=== PATIENT | male | born 1965 | race Caucasian/White ===

== ENCOUNTER → 2022-07-07 08:48 | Outpatient (BNVA) | payer BC, SELFPAY | PROVIDERS: PCP Internal Medicine; Visit Provider Nurse Practitioner Family ==

== ENCOUNTER 2022-08-23 11:40 | Outpatient (REF) | payer BC, SELFPAY ==
[2022-08-23 14:42] LABS: PSA,Total (Free>4and<10) 11.78 ng/mL (0.00-4.00)
== END 2022-08-23 11:41 | disposition home or self-care (01) ==
LOC: HO.10HDL 11:40
PROVIDERS: Visit Provider Nurse Practitioner Family
DX: Z12.5 Encounter for screening for malignant neoplasm of prostate (principal); R97.20 Elevated prostate specific antigen [PSA]
CPT/HCPCS: 36415; 84153

== ENCOUNTER → 2022-10-06 11:26 | Outpatient (BNVA) | payer BC, SELFPAY | PROVIDERS: PCP Internal Medicine; Visit Provider Urology ==

== ENCOUNTER 2022-11-01 13:33 | Outpatient (AMB) | payer BC, SELFPAY ==
--- NOTE | 2022-11-01 13:33 | A.OFFVIS_ITS ---
Intake Intake Visit Reasons: biopsy consult H&P(no show to his biopsy) Intake Note: Patient is present for Telephone Urology Med:levofloxacin Antibiotic Allergy: none Blood Thinner: none [facility]: [facility] Required: No Allergies No Known Allergies Allergy (Verified 11/01/22 13:36) Medication List - Last Reconciled 11/01/22 by Raj Calles MD levofloxacin 500 mg PO daily 3 days HPI HPI Comments History of Present Illness Details Garrick is a pleasant male. He is a patient of Dr. Jackson. He presents for the following urologic conditions - elevated PSA Telemedicine Evaluation 15 min Consultation [facility] Video attempted Discussion regarding risks and benefits of prostate biopsy He would like to defer biopsy Based on the PCP T calculator he has a 40% chance of prostate cancer with a 20% chance of high risk prostate cancer He was informed of these risks He was also informed that he would be ully responsible for any delay in diagnosis and/or delay of therapeutic options He wishes to proceed with repeat PSA in 3 months Elevated PSA PSA 06/04 10.7, 09/03 11.8 Had been seen evaluated by nurse practitioner ARCHIE on right side Biopsy recommended Discussed urgency and frequency. Likely caused by dietary irritants. Previously drank multiple red bulls. He no showed the original biopsy appointment [facility] Medical History HTN (hypertension) Review of Systems Const All systems reviewed & are unremarkable except as noted in HPI and below Reports no additional complaints Resp Reports no additional complaints GI Reports no additional complaints Reports as per HPI Musc Reports no additional complaints Physical Exam Telemedicine evaluation Appropriate responses Regular breathing rate and rhythm HEENT Head: Yes normal to inspection Ears: hearing grossly normal bilaterally Eyes General: appearance normal, both eyes and all related structures Neck Neck: Yes normal visual inspection Chest Chest palpation & inspection: normal inspection of the chest Resp Effort & Inspection: normal respiratory effort and able to speak in complete sentences Assessment & Plan Assessment & Plan (1) Elevated PSA: Code(s): R97.20 - Elevated prostate specific antigen [PSA] (2) Abnormal digital rectal exam: Code(s): R68.89 - Other general symptoms and signs Plan Prostate biopsy recommended Patient request PSA in 3 months Orders: Orders PSA,Total (Free>4and<10) 3 Months R97.20 - Elevated prostate specific antigen [PSA] Patient Instructions: Imaging studies, laboratory and physical exam results were discussed and reviewed in detail. No major barriers to patient understanding were identified. An opportunity to ask questions regarding the treatment plan was provided. All questions were answered. The patient expressed understanding and agreement with the above treatment plan. The patient is aware they should contact our office by phone for worsening of their current condition or the appearance of new urologic symptoms. Compliance is encouraged with any medications and followup testing that is ordered. It is a privilege to participate in the urologic care of your patient. If you have any questions or concerns regarding treatment for the above conditions, or other urologic issues, please do not hesitate to contact me. The office telephone contact is [phone]. This note is constructed using voice recognition software. 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 Yours sincerely, Dr Raj Calles MD, [facility] - Urology Providers of Expert, Compassionate Care for the Genitourinary System Telehealth Telehealth Location of provider rendering services: practice address Location of patient: address on file Patient Identification confirmed using: Name, : Yes Telehealth method: voice only Patient verbally consented to treatment: Yes Patient verbally consented to billing insurance company: Yes Patient informed of any privacy concerns related to visit: Yes Coding Level of Care Code Tele Est Pt Level 4 (55333) Diagnoses Elevated PSA R97.20 Abnormal digital rectal exam R68.89
== END 2022-11-01 14:09 | disposition home or self-care (01) ==
LOC: HO.HUSH 13:33
PROVIDERS: PCP Internal Medicine; Visit Provider Urology
DX: R97.20 Elevated prostate specific antigen [PSA] (principal); R68.89 Other general symptoms and signs
CPT/HCPCS: 99442

== ENCOUNTER → 2022-11-01 13:33 | Outpatient (BNVA) | payer BC, SELFPAY | PROVIDERS: PCP Internal Medicine; Visit Provider Urology ==

== ENCOUNTER 2024-12-23 15:11 | Outpatient (AMB) | payer BC, SELFPAY ==
--- NOTE | 2024-12-23 15:16 | MHC.OFFVIS ---
Vital Signs 12/23/24 15:21 Height 5 ft 8 in Weight 205 lb BMI 31.2 BP 158/86 H Blood Pressure Location Rt brachial Position Sitting Pulse 82 Pulse Source Pulse Oximeter Pulse Oximetry (%) 99 Oxygen Delivery Method Room Air Intake Visit Reasons: [place] screening Intake Note: New pt for initial colo screening. No pertinent surgical or FMHx. CC: Pt denies any GI sx or concerns at this time. Hx of HTN, currently unmedicated. Test Deck Supervisor Required: No Accompanied by: Self / Same As Patient Allergies No Known Allergies Allergy (Verified 11/01/22 13:36) HPI HPI [place] screening: Details: 59-year-old male here for preprocedural meeting to discuss a screening colonoscopy. He is referred by Niki Jackson. PMX Allergic rhinitis Hypertension Transaminitis BPH * SURGICAL HISTORY nO * ALLERGIES: NKDA * [employer] [place] LABS: None in our system TODAY'S VISIT First colonoscopy: Yes Bowel or upper GI problems: No Problems with anesthesia or sedation: Naive Cardiac or respiratory problems: No Infectious disease problems: No Family history: No PFSH Medical History HTN (hypertension) Social History (Updated 12/23/24 @ 15:21 by BOOKER Damon) Alcohol intake: never Patient Tobacco Use Status: Never used Tobacco Use of substances other than those prescribed or required for medical reasons: No Review of Systems Const Denies fatigue, Denies fever(s), Denies night sweats, Denies poor appetite and Denies weight loss ENT Reports Normal hearing present, Denies dental pain, Denies dysphagia, Denies hearing loss, Denies mouth pain, Denies odynophagia, Denies throat swelling, Denies tongue swelling and Reports other (Dentition adequate) Card Reports no additional complaints Resp Reports no additional complaints GI Details: Denies abdominal pain, Denies melena, Denies bloating, Denies hematochezia, Denies constipation, Denies GI cramping, Denies dysphagia, Denies excessive flatus, Denies early satiety, Denies heartburn, Denies diarrhea, Denies nausea, Denies odynophagia, Denies vomiting and Denies hematemesis Skin/Breast Denies pruritus, Denies lesions, Denies rash and Denies jaundice Neuro Reports Normal hearing present and Denies Abnormal speech present Endo Denies fatigue Aller/Immun Denies throat swelling and Denies tongue swelling Physical Exam Vital Signs: Last Vital Signs Pulse 82 12/23/24 15:21 BP 158/86 H 12/23/24 15:21 Pulse Ox 99 12/23/24 15:21 Oxygen Delivery Method Room Air 12/23/24 15:21 BMI result Body Mass Index 31.2 Const General: cooperative, no acute distress, well developed and well groomed Nutritional Appearance: well nourished and obese centrally obese Orientation/consciousness: oriented to person, oriented to place and oriented to time Limitations: No language barrier and ambulation with cane HEENT Head: Yes normocephalic and Yes atraumatic Eyes General: appearance normal, both eyes and all related structures Pupils: Equal, round and reactive pupils present Neck Neck: Yes normal visual inspection and Yes no lymphadenopathy Thyroid: Thyroid normal Resp Effort & Inspection: normal respiratory effort and able to speak in complete sentences Auscultation: clear to auscultation bilaterally Cardio Rate: regular rate Rhythm: regular rhythm Heart sounds: Normal, physiologic split S2 sound present Peripheral pulses: radial pulses present and posterior tibial pulses present GI Inspection: No distended, No Abdominal panniculus present and Yes obesity Palpation (GI): Soft to palpation, nontender, no guarding, not rigid and No hepatosplenomegaly present Percussion: Yes normal to percussion Auscultation: normal bowel sounds Rectal Exam - Male: Yes deferred Skin General skin exam: no rashes or lesions noted, turgor normal, skin not dry, no jaundice, No spider nevi and no striae Rashes: no rashes Nails: normal Neuro General: oriented to person, oriented to place and oriented to time Cranial nerves: Yes Equal, round and reactive pupils present and Yes Normal hearing present Speech: No Abnormal speech present Extrem General: Yes normal to inspection, No clubbing, No cyanosis and No edema Psych Appearance: grossly normal and well kempt Mental Status: mental status grossly normal Speech and movement: Normal speech and movement present Affect: normal affect Attitude: cooperative Thought process: Normal thought process present and not confabulating Thought content: Normal thought content present Insight: Good insight present (Psych) Judgement: Good judgement present (Psych) Assessment & Plan Assessment & Plan (1) Pre-op examination: Code(s): Z01.818 - Encounter for other preprocedural examination Category: Medical Plan First colonoscopy: Yes Bowel or upper GI problems: No Problems with anesthesia or sedation: Naive Cardiac or respiratory problems: No Infectious disease problems: No Family history: No Orders: Orders Comprehensive Met. Panel Today Z01.818 - Encounter for other preprocedural examination Complete Blood Count Auto Diff Today Z01.818 - Encounter for other preprocedural examination Referrals GI Procedure Notification Z01.818 - Encounter for other preprocedural examination Medications: New bisacodyl (Dulcolax (bisacodyl)) 10 mg (2 x 5 mg) PO BEDTIME 4 tabs 0RF 2 days peg 3350-electrolytes 236-22.74-6.74 -5.86 gram (Golytely) until fecal effluent is clear; do not exceed a total volume of 2,000 mL 240 mL PO Q10M 4,000 mL 0RF 1 day Z12.11 - Encounter for screening for malignant neoplasm of colon Coding Level of Care Code New Pt Level 3 (40155) Diagnoses Pre-op examination Z01.818
[2024-12-23 15:21] VITALS: BP 158/86; PULSE 82; O2SAT 99; BMI 31.2
--- OUTSIDE RECORDS SUMMARY | 2024-12-23 16:56 | XMS_ITS | Clinical Summary ---
Author Organization [facility] Address [address] [place] [id number] Phone Care Team Providers Care Core Composer Feeder Name Role Phone Unavailable Primary Care Provider Unavailabl e Allergies No known active allergies Medications No known medications Active Problems No known active problems Social History Tobacco Use Types Packs/Day Years Used Date Smoking Tobacco: Never Smokeless Tobacco: Never Education Answer Date Recorded Are you interested in more education? Not on deborah e 06/10/2022 Are you concerned about learning? Not on file 06/10/2022 No 06/10/2022 No 06/10/2022 Digital Access Answer Date Recorded No 07/11/2022 No 07/11/2022 Reliable internet access at home? Not on file 07/11/2022 Device with a working camera? Not on file Sex and Gender Information Value Date Recorded Sex Assigned at Not on file Legal Sex Male 1:56 PM EDT Gender Identity Not on file Sexual Orientation Not on file Last Filed Vital Signs Vital Sign Reading Time Taken Comments Blood Pressure 139/98 05/30/2020 2:08 PM EDT Pulse 84 05/30/2020 2:08 PM EDT Temperature 36.8 C (98.2 F) 05/30/2020 2:08 PM EDT Respiratory Rate 16 05/30/2020 2:08 PM EDT Oxygen Saturation 98% 05/30/2020 2:08 PM EDT Inhaled Oxygen Concentration - - Weight 93 kg (205 lb) 05/30/2020 2:08 PM EDT Height 172.7 cm (5' 8 ) 05/30/2020 2:08 PM EDT Body Mass Index 31.17 05/30/2020 2:08 PM EDT Plan of Treatment Not on file Medical Devices Not on [place] [address] [place] [address] [place] [address] [facility] Additional Source Comments The information contained in this document represents components of the legal health record. It is not the complete legal health record.[facility]
== END 2024-12-23 15:53 | disposition home or self-care (01) ==
LOC: HO.HGI 15:12
PROVIDERS: PCP Internal Medicine; Visit Provider Nurse Practitioner
DX: Z01.818 Encounter for other preprocedural examination (principal); Z12.11 Encounter for screening for malignant neoplasm of colon
CPT/HCPCS: S0285